=== PATIENT | male | born 2000 | race Caucasian/White ===

== ENCOUNTER 2025-04-19 07:05 | Day surgery (SDC) | payer OTHER ==
[~2025-04-19] VITALS: Ht 160 cm; Wt 60.0 kg
[~2025-04-19 07:05] MED LIST: IBLOOD GLUCOSE TEST STRIP 1 EA TEST VI PRN; LACTATED RINGER'S 1,000 ML IV SCH; LIDOCAINE HCL 1% 5 ML SDV INJ ONE; OMEPRAZOLE40 MG PO; ONFI10 MG PO; XCOPRI100 MG PO
[2025-04-19 07:28] VITALS: BP 117/89
[2025-04-19] MEDS ORDERED: ROCURONIUM BROMIDE 50 MG/5 ML SYR ONE (08:30)
[2025-04-19] MEDS ORDERED: fentaNYL citrate 100 MCG/2 ML VIAL ONE (08:30)
[2025-04-19] MEDS ORDERED: SUCCINYLCHOLINE IN 0.9% NACL 200 MG/10 ML SYRINGE ONE (08:30)
[2025-04-19] MEDS ORDERED: ondansetron HCL 4 MG/2 ML VIAL ONE (08:30)
[2025-04-19] MEDS ORDERED: KETOROLAC TROMETHAMINE 30 MG/ML VIAL ONE (08:30)
[2025-04-19] MEDS ORDERED: DEXAMETHASONE SOD PHOS 4 MG/ML VIAL ONE (08:30)
[2025-04-19] MEDS ORDERED: LIDOCAINE HCL 2% 5 ML SDV ONE (08:30)
[2025-04-19] MEDS ORDERED: propofoL 200 MG/20 ML VIAL ONE (08:30)
[2025-04-19] MEDS ORDERED: ePHEDrine sulfate 50 MG/ML AMP ONE (12:23)
[2025-04-19] MEDS ORDERED: ACETAMINOPHEN 1,000 MG/100 ML VIAL IV PRN (13:00)
--- NOTE | 2025-04-19 13:23 | NUR ---
04/19/25 1323 Shannon Lora 1304-PT ARRIVES TO PACU VIA STRETCHER, RESTING SEMI FOWLERS, PT NON RESPONSIVE TO NOXIOUS STIMULI, OPA IN PLACE, VSS ON 6L VIA MASK, RR EVEN AND UNLABORED.
[2025-04-19 13:53] VITALS: BP 120/65
--- NOTE | 2025-04-19 14:02 | NUR ---
1350- PT ARRIVES FROM PACU. BEDSIDE REPORT RECIEVED BY ABBI GAITAN WITH MOM AT BEDSIDE. JELLO AND JUICE PROVIDED FOR PT. PT IS RESTING WITH EYES CLOSED, GRABBING AT HIS PERSONAL BLANKET, NO DRAINAGE NOTED FROM THE SURGICAL SITE. BED LOCKED IN THE LOWEST POSITION AND CALL LIGHT IN REACH. PT BRIEF CHECKED AND IS DRY AT THIS TIME. PT MOTHER IS AWARE OF DISCHARGE CRITERIA AND IS UNDERSTANDING.
[2025-04-19 14:54] VITALS: BP 120/79
--- NOTE | 2025-04-19 14:57 | NUR ---
1455- PT RESTING IN BED PLAYING ON HIS TABLET. PT ATE JELLO AND SIPPING ON JUICE. PT SHOWS NO SIGN OF NAUSEA OR PAIN. NO DRAINAGE NOTED OR REPORTED BY MOTHER. VITAL SIGNS OBTAINED. DC INFORMATION GONE OVER AND ALL QUESTIONS AND CONCERNS ANSWERED. CALL LIGHT IN REACH AND BED IN LOWEST AND LOCKED POSITION.
[2025-04-19] MEDS ORDERED: SEVOFLURANE 250 ML BTL INH ONE (15:23)
[2025-04-19 15:54] VITALS: BP 129/78
--- NOTE | 2025-04-19 16:14 | NUR ---
1605- VITAL SIGNS OBTAINED. IV REMOVED. BRIEF CHANGED AFTER AN UNMEASURABLE VOID. PT IS DRESSED BY MOTHER AND EMPLOYMENT COACH AND TRANSFERED TO HIS PERSONAL WHEELCHAIR. PT MOTHER HAS DISCHARGE INFORMATION AND IS PROPELLING HIM OUT OF DAY SURGERY. THIS NURSE ACCOMPANIED THEM TO THEIR CAR, WHERE HE WAS SAFELY TRANSFERED TO THE FAMILY VEHICLE. PT MOTHER DENIES QUESTIONS OR CONCERNS.
== END 2025-04-19 16:05 | disposition home or self-care (01) ==
LOC: DS 07:05 → OPS 07:05 → DS 09:00 → OPS 16:05
PROVIDERS: ATTEND Dentist General Practice
PROC: 0CQWXZ1 Repair of Upper Tooth, Multiple, External Approach (ICD-10-PCS; 2025-04-19)
PROC: 0CQXXZ1 Repair of Lower Tooth, Multiple, External Approach (ICD-10-PCS; principal; 2025-04-19 09:00)
DX: K02.9 Dental caries, unspecified (principal); G40.011 Localization-related (focal) (partial) idiopathic epilepsy and epileptic syndromes with seizures of localized onset, intractable, with status epilepticus; Z91.030 Bee allergy status; Z91.048 Other nonmedicinal substance allergy status; Z88.5 Allergy status to narcotic agent; Z88.8 Allergy status to other drugs, medicaments and biological substances; Z79.899 Other long term (current) drug therapy
CPT/HCPCS: 00170; J0330; J1100; J1885; J2003; J2405; J2704; J3010; J3490; J7121